=== PATIENT | male | born 1945 | race African-American/Black ===

== ENCOUNTER → 2016-05-15 | Outpatient (CLI) | payer OTHER ==
[2015-01-05 17:20] VITALS: BP 147/97
--- NOTE | 2016-05-15 14:14 | RAD ---
Indication: Severe right hip pain. Time of exam 1407 hours. Femoral acetabular alignment is normal bilaterally. The joint spaces are well maintained. Both femoral heads and necks are intact. No fractures are seen. The rami are intact. There are multiple surgical clips in the pelvis. Impression: No acute bony abnormality is detected.
== END | disposition home or self-care (01) ==
LOC: RAD 13:38
PROVIDERS: ATTEND Family Medicine
DX: M25.551 Pain in right hip (principal)
CPT/HCPCS: 73502

== ENCOUNTER → 2017-03-02 | Outpatient (CLI) | payer OTHER ==
[2015-01-05 17:20] VITALS: BP 147/97
--- NOTE | 2017-03-02 08:59 | KCIC ---
SCAN OF ABDOMINAL AORTA History: Screening for abdominal aortic aneurysm Comparison: None. Findings: Multiple grayscale, color, and duplex spectral analysis waveform images of the abdominal aorta are submitted. No abdominal aortic aortic aneurysm is demonstrated. Maximal proximal caliber was up to 2.7 cm, 1.9 cm at the mid segment, and 2 cm distally. Right common iliac artery measured up to 1.3 cm, left 1.2 cm. Peak systolic velocity of the mid abdominal aorta was 64 cm/s. Incidental note is made of cholelithiasis. Visualized common bile duct is not dilated at 0.4 cm. Impression: 1. There is no evidence of abdominal aortic aneurysm. 2. Incidental note is made of cholelithiasis. Electronically signed by: Sarkis Benson MD (03/02/2017 8:56 AM) [id number]
== END | disposition home or self-care (01) ==
LOC: KCIC US 08:07
PROVIDERS: ATTEND Family Medicine
DX: Z13.6 Encounter for screening for cardiovascular disorders (principal); Z13.89 Encounter for screening for other disorder; K80.20 Calculus of gallbladder without cholecystitis without obstruction
CPT/HCPCS: 76770